=== PATIENT | male | born 1965 | race Two or more races ===

== ENCOUNTER 2018-09-20 23:55 | Emergency (ER) | payer OTHER, SELFPAY ==
[~2018-09-20] VITALS: Ht 165.1 cm; Wt 68.2 kg
[2018-09-21] MEDS ORDERED: DIPH,PERTUSS(ACELL),TET VAC/PF 0.5 ML IM-VACC ONE ×2 (01:00→01:06)
--- NOTE | 2018-09-21 01:02 | NUR ---
report from melanie quezada. pt at [facility].
[2018-09-21 02:08] VITALS: BP 111/73
--- NOTE | 2018-09-21 02:19 | NUR ---
Patient given discharge instructions and they have confirmed that they understand the instructions. Patient ambulatory with steady gait.
== END 2018-09-21 02:34 | disposition home or self-care (01) ==
LOC: ED 23:59
DX: S00.81XA Abrasion of other part of head, initial encounter (principal); R55 Syncope and collapse; M25.462 Effusion, left knee; R42 Dizziness and giddiness; F17.200 Nicotine dependence, unspecified, uncomplicated; W19.XXXA Unspecified fall, initial encounter; Y93.89 Activity, other specified; Y92.89 Other specified places as the place of occurrence of the external cause; Y99.8 Other external cause status
CPT/HCPCS: 29505; 90471; 90715; 93005; 99283